=== PATIENT | female | born 1975 | race Caucasian/White ===

== ENCOUNTER 2021-04-08 11:26 | Day surgery (SDC) | payer OTHER ==
[~2021-04-08] VITALS: Ht 157.5 cm; Wt 99.8 kg
[2021-04-08] MEDS ORDERED: diphenhydrAMINE 50 MG/ML VIAL ONE (12:55)
[2021-04-08] MEDS ORDERED: fentaNYL citrate 0.05 MG/ML VIAL ONE (12:55)
[2021-04-08] MEDS ORDERED: MIDAZOLAM 5 MG/5 ML VIAL ONE (12:55)
[2021-04-08] MEDS ORDERED: LIDOCAINE 2% 100 MG/5 ML UJET TP ONE ×2 (12:56→13:25)
[2021-04-08] MEDS ORDERED: fentaNYL citrate 0.05 MG/ML VIAL IVP ONE (13:25)
[2021-04-08] MEDS ORDERED: MIDAZOLAM 2 MG/2 ML VIAL IVP ONE (13:25)
== END 2021-04-08 14:11 | disposition home or self-care (01) ==
LOC: MDS 11:26 → MFCC 11:26 → MDS 14:11
PROVIDERS: ATTEND Internal Medicine Gastroenterology
DX: K62.5 Hemorrhage of anus and rectum (principal); K64.8 Other hemorrhoids; K58.2 Mixed irritable bowel syndrome; R94.5 Abnormal results of liver function studies; E66.09 Other obesity due to excess calories; Z98.51 Tubal ligation status; Z79.899 Other long term (current) drug therapy
CPT/HCPCS: 45378; J2250; J3010; J1200